=== PATIENT | male | born 1940 | race Caucasian/White ===

== ENCOUNTER → 2016-10-13 | Outpatient (CLI) | payer MEDICARE ==
[~2016-10-13] MED LIST: ACET-2264 PO; ASPI-586 PO; ATOR80TA73 PO; CYAN1TAB26 PO; OMEP20TA PO; OMG1KC PO
--- NOTE | 2016-10-13 09:09 | Diagnostic Imaging Report ---
INDICATION: Right upper quadrant abdominal pain. TECHNIQUE: Abdominal sonography was performed in the routine fashion. FINDINGS: The liver shows normal echogenicity with no focal lesions. The gallbladder shows no gallstones or gallbladder wall thickening. The common duct measures 5 mm. The pancreas is not well-seen due to overlying gas. The spleen is unremarkable and measures 10 cm in length. The aorta is nonaneurysmal. The IVC appears unremarkable. The right kidney is normal and measures 10.3 x 4.9 x 5.5 cm. The left kidney shows no hydronephrosis. There is a cyst in the lower pole of the left kidney measuring 1.6 x 1.8 x 1.5 cm. There is no ascites. IMPRESSION: Small incidental cyst in the left kidney. No ascites. No abdominal mass is visualized. The pancreas is not well-seen due to overlying gas. Dictated by: Dictated on workstation # [id number]
== END ==
LOC: RAD 07:19
PROVIDERS: ATTEND Family Medicine
DX: R10.11 Right upper quadrant pain (principal); N28.1 Cyst of kidney, acquired
CPT/HCPCS: 76700